=== PATIENT | male | born 1965 | race Two or more races ===

== ENCOUNTER 2021-09-08 09:55 | Emergency (ER) | payer MEDICAID, OTHER ==
[~2021-09-08] VITALS: Ht 180.3 cm; Wt 56.7 kg
[2021-09-08 10:54] LABS: Basophils # (auto) 0 10 ^3/uL (0-0.2); Basophils % (auto) 0.3 % (0.0-2.0); Eosinophils # (auto) 0 10 ^3/uL (0-0.8); Eosinophils % (auto) 0.2 % (0.0-7.0); Hemoglobin 12.3 g/dL (13.5-17.5); Lymphocytes # (auto) 1.5 10 ^3/uL (0.4-5.4); Lymphocytes % (auto) 14.5 % (10.0-50.0); Mean Corpuscular Hemoglobin 31.8 pg (28.0-32.0); Mean Corpuscular Hgb Conc. 33.2 g/dL (32.0-36.0); Mean Corpuscular Volume 95.9 fL (80.0-100.0); Monocytes # (auto) 1.2 10 ^3/uL (0-1.3); Monocytes % (auto) 11.7 % (0.0-12.0); Neutrophils # (auto) 7.4 10 ^3/uL (1.6-8.6); Neutrophils % (auto) 73.3 % (37.0-80.0); Red Blood Cells 3.86 10^6/uL (4.5-5.90); Red Cell Distribution Width 16.2 % (11.8-14.3); White Blood Cell 10.1 10^3/uL (4.4-10.8)
[2021-09-08 11:13] LABS: Calcium 8.1 mg/dL (8.5-10.1); Potassium 3.6 mmol/L (3.5-5.1)
[2021-09-08 11:18] LABS: BUN/Creatinine Ratio 23.5; Bilirubin, Total 0.3 mg/dL (0.2-1.0); Total Protein 7.2 g/dL (6.4-8.2)
[2021-09-08] MEDS ORDERED: SODIUM CHLORIDE 0.9% 500 ML IVB ONE (12:30)
[2021-09-08] MEDS ORDERED: SODIUM CHLORIDE 0.9% 1,000 ML IV ONE ×2 (12:30)
[2021-09-08] MEDS ORDERED: cefTRIAXone 1GM/50ML D5W 50 ML IV ONE (15:00)
[2021-09-08 16:41] LABS: INR 1.06 (0.9-1.15); Partial Thromboplastin Time 31.1 sec (23.6-33.0)
[2021-09-08 16:52] LABS: Urine Amorphous Crystal FEW /hpf (None Seen); Urine Bacteria NONE SEEN /hpf (None Seen); Urine Blood TRACE /uL (Negative); Urine Mucus FEW (None Seen); Urine Specific Gravity 1.012 (1.001-1.035); Urine WBC 29 /hpf (0 - 3); Urine WBC Clumps PRESENT /hpf (None Seen)
[2021-09-08 17:02] LABS: Alcohol, Urine < 3.0 mg/dL (0-10); Amphetamine Screen, Urine NEGATIVE (NEGATIVE); Barbiturate Scree,Urine NEGATIVE (NEGATIVE); Benzodiazephine Screen, Urine NEGATIVE (NEGATIVE); Cannabinoid Screen, Urine NEGATIVE (NEGATIVE); Cocaine Screen, Urine NEGATIVE (NEGATIVE); Opiate Scree,Urine NEGATIVE (NEGATIVE); Phencyclidine Screen, Urine NEGATIVE (NEGATIVE)
[2021-09-09] MEDS ORDERED: ACETAMINOPHEN 325 MG TAB PO PRN (01:15)
[2021-09-09] MEDS ORDERED: VANCOMYCIN 1GM/250ML 250 ML IV ONE (01:15)
[2021-09-09] MEDS ORDERED: ONDANSETRON HCL 4 MG/2 ML VIAL IV PRN (01:15)
[2021-09-09] MEDS ORDERED: VANCOMYCIN PER PHARMACY 0 MG IV SCH (01:15)
[2021-09-09] MEDS ORDERED: HYDROcodone-ACET 5/325MG TAB PO PRN (01:15)
[2021-09-09] MEDS: cefTRIAXone 1GM/50ML D5W 50 ML IV SCH (09:20)
[2021-09-09] MEDS: VANCOMYCIN 1GM/250ML 250 ML IV SCH ×2 (12:16→20:29)
[2021-09-10] MEDS: VANCOMYCIN 1GM/250ML 250 ML IV SCH (04:23)
[2021-09-10] MEDS: cefTRIAXone 1GM/50ML D5W 50 ML IV SCH (09:02)
[2021-09-10] MEDS ORDERED: VANCOMYCIN 1GM/250ML 250 ML IV SCH (18:00)
[2021-09-10 21:35] VITALS: BP 125/76
== END 2021-09-10 22:55 | disposition short-term general hospital (02) ==
LOC: ER 09:55 → EDBD 09:55 → ER 09-10 22:55
DX: L89.304 Pressure ulcer of unspecified buttock, stage 4 (principal); R41.82 Altered mental status, unspecified; F03.90 Unspecified dementia, unspecified severity, without behavioral disturbance, psychotic disturbance, mood disturbance, and anxiety; M86.8X8 Other osteomyelitis, other site; R74.8 Abnormal levels of other serum enzymes; E46 Unspecified protein-calorie malnutrition; Z68.1 Body mass index [BMI] 19.9 or less, adult; Z20.822 Contact with and (suspected) exposure to COVID-19
CPT/HCPCS: 36415; 70450; 71045; 74176; 80053; 80202; 80307; 81001; 82565; 83605; 83735; 84484; 85025; 85610; 85730; 87040; 87077; 87186; 87205; 87426; 93005; 96361; 96365; 96366; 96367; 99285; J0696; J3370; J7030

== ENCOUNTER 2022-01-07 08:01 | Inpatient (IN) | payer MEDICAID ==
[~2022-01-07] VITALS: Ht 172.7 cm; Wt 57.9 kg
[2022-01-07 09:19] LABS: Basophils # (auto) 0.1 10 ^3/uL (0-0.2); Basophils % (auto) 1.4 % (0.0-2.0); Eosinophils # (auto) 0.4 10 ^3/uL (0-0.8); Eosinophils % (auto) 4.6 % (0.0-7.0); Hemoglobin 12.7 g/dL (13.5-17.5); Lymphocytes % (auto) 24.9 % (10.0-50.0); Mean Corpuscular Hemoglobin 30.4 pg (28.0-32.0); Mean Corpuscular Hgb Conc. 34.4 g/dL (32.0-36.0); Mean Corpuscular Volume 88.5 fL (80.0-100.0); Monocytes % (auto) 12.1 % (0.0-12.0); Neutrophils # (auto) 4.5 10 ^3/uL (1.6-8.6); Nucleated Red Blood Cells % 0.1 %; Red Blood Cells 4.18 10^6/uL (4.5-5.90); Red Cell Distribution Width 14.6 % (11.8-14.3); White Blood Cell 7.9 10^3/uL (4.4-10.8)
[2022-01-07 09:38] LABS: Urine Bacteria FEW /hpf (None Seen); Urine Blood 2+ /uL (Negative); Urine Budding Yeast FEW /hpf (None Seen); Urine Specific Gravity 1.019 (1.001-1.035); Urine WBC 54 /hpf (0 - 3)
[2022-01-07] MEDS ORDERED: LIDOCAINE 2% JELLY 11ml (GLYDO) UR ONE (10:30)
[2022-01-07] MEDS ORDERED: HYDROcodone-ACET 5/325MG TAB PO ONE (10:45)
[2022-01-07 12:50] LABS: Albumin 3.1 g/dL (3.4-5.0); BUN/Creatinine Ratio 16.4; Calcium 9.1 mg/dL (8.5-10.1)
[2022-01-07 12:54] LABS: Total Protein 7.1 g/dL (6.4-8.2)
[2022-01-07 12:56] LABS: Potassium 3.7 mmol/L (3.5-5.1)
[2022-01-07] MEDS ORDERED: fentaNYL CITRATE 100 MCG/2 ML VL IV ONE (13:00)
[2022-01-07 13:02] LABS: Bilirubin, Total 0.5 mg/dL (0.2-1.0)
[2022-01-07] MEDS ORDERED: cefTRIAXone 1GM/50ML D5W 50 ML IV ONE (14:30)
[2022-01-07] MEDS ORDERED: SODIUM CHLORIDE 0.9% 2,000 ML IV ONE (16:45)
[2022-01-07] MEDS ORDERED: SODIUM CHLORIDE 0.9% 1,000 ML IV ONE (17:00)
[2022-01-07 17:14] LABS: Cholesterol 180 mg/dL (< 200)
[2022-01-07] MEDS ORDERED: FOLI1TAB6 PO (17:16)
[2022-01-07] MEDS ORDERED: ASPI-325 PO (17:16)
[2022-01-07] MEDS ORDERED: [UNRECOGNIZED DRUG - CODE] PO (17:16)
[2022-01-07 17:17] LABS: HDL Cholesterol 61 mg/dL (40-59); LDL Cholesterol 94 mg/dL (< 100); Triglycerides 82 mg/dL (< 150)
[2022-01-07 17:47] VITALS: BP 104/64
[2022-01-07 20:00] VITALS: BP 102/67
[2022-01-07] MEDS: CIPROFLOXACIN 400MG/200ML 200 ML IV SCH (22:00)
[2022-01-07 22:19] VITALS: BP 102/67
[2022-01-08 05:00] VITALS: BP 96/64
[2022-01-08 05:48] LABS: Basophils # (auto) 0.2 10 ^3/uL (0-0.2); Basophils % (auto) 2.3 % (0.0-2.0); Eosinophils # (auto) 0.4 10 ^3/uL (0-0.8); Eosinophils % (auto) 5.6 % (0.0-7.0); Hematocrit 35.3 % (41.0-53.0); Hemoglobin 11.9 g/dL (13.5-17.5); Lymphocytes # (auto) 2.1 10 ^3/uL (0.4-5.4); Lymphocytes % (auto) 28.7 % (10.0-50.0); Mean Corpuscular Hemoglobin 30.3 pg (28.0-32.0); Mean Corpuscular Hgb Conc. 33.8 g/dL (32.0-36.0); Mean Corpuscular Volume 89.5 fL (80.0-100.0); Monocytes # (auto) 0.9 10 ^3/uL (0-1.3); Neutrophils # (auto) 3.8 10 ^3/uL (1.6-8.6); Neutrophils % (auto) 51.4 % (37.0-80.0); Red Blood Cells 3.94 10^6/uL (4.5-5.90); Red Cell Distribution Width 14.6 % (11.8-14.3); White Blood Cell 7.4 10^3/uL (4.4-10.8)
[2022-01-08 06:10] LABS: Potassium 3.5 mmol/L (3.5-5.1)
[2022-01-08 06:19] LABS: Albumin 2.5 g/dL (3.4-5.0); BUN/Creatinine Ratio 10.9; Bilirubin, Total 0.6 mg/dL (0.2-1.0); Calcium 8.6 mg/dL (8.5-10.1); Total Protein 6.3 g/dL (6.4-8.2)
[2022-01-08 09:00] VITALS: BP 101/65
[2022-01-08] MEDS: ENOXAPARIN SOD 40 MG/0.4 ML SYRINGE SC SCH (10:37)
[2022-01-08] MEDS: CIPROFLOXACIN 400MG/200ML 200 ML IV SCH ×2 (10:37→21:40)
[2022-01-08] MEDS ORDERED: CIPR-173 PO (12:57)
[2022-01-08 13:00] VITALS: BP 104/73
[2022-01-08 17:00] VITALS: BP 114/66
[2022-01-08 22:04] VITALS: BP 113/72
[2022-01-09 05:00] VITALS: BP 117/55
[2022-01-09 08:42] VITALS: BP 102/53
[2022-01-09] MEDS: ENOXAPARIN SOD 40 MG/0.4 ML SYRINGE SC SCH (09:34)
[2022-01-09] MEDS: CIPROFLOXACIN 400MG/200ML 200 ML IV SCH ×2 (09:34→21:39)
[2022-01-09 13:00] VITALS: BP 96/62
[2022-01-09 17:00] VITALS: BP 102/58
[2022-01-09 21:41] VITALS: BP 103/64
[2022-01-10 04:45] VITALS: BP 100/59
[2022-01-10 09:02] VITALS: BP 105/69
[2022-01-10] MEDS: CIPROFLOXACIN 400MG/200ML 200 ML IV SCH (09:51)
[2022-01-10] MEDS: ENOXAPARIN SOD 40 MG/0.4 ML SYRINGE SC SCH (09:52)
[2022-01-10 13:00] VITALS: BP 109/63
== END 2022-01-10 15:22 | disposition home or self-care (01) | DRG 466 ==
LOC: EDBD 08:01 → ER 08:01 → OVERFLOW 16:23 → WEST WING 17:56
PROVIDERS: ADMIT Registered Nurse; ATTEND Internal Medicine
DX: T83.091A Other mechanical complication of indwelling urethral catheter, initial encounter (principal); L89.94 Pressure ulcer of unspecified site, stage 4; E44.0 Moderate protein-calorie malnutrition; M46.28 Osteomyelitis of vertebra, sacral and sacrococcygeal region; E88.09 Other disorders of plasma-protein metabolism, not elsewhere classified; F01.50 Vascular dementia, unspecified severity, without behavioral disturbance, psychotic disturbance, mood disturbance, and anxiety; I69.351 Hemiplegia and hemiparesis following cerebral infarction affecting right dominant side; N39.0 Urinary tract infection, site not specified; Y73.8 Miscellaneous gastroenterology and urology devices associated with adverse incidents, not elsewhere classified; K57.90 Diverticulosis of intestine, part unspecified, without perforation or abscess without bleeding; Z20.822 Contact with and (suspected) exposure to COVID-19; R33.9 Retention of urine, unspecified; Z68.1 Body mass index [BMI] 19.9 or less, adult; Z79.82 Long term (current) use of aspirin
CPT/HCPCS: 36415; 70450; 71045; 74176; 80053; 80061; 81001; 83615; 83735; 85025; 87040; 96361; 96365; 96375; G0378; J0696